=== PATIENT | female | born 1955 | race Caucasian/White ===

== ENCOUNTER → 2020-08-06 07:16 | Outpatient (CLI) | payer OTHER, SELFPAY ==
--- NOTE | ~2020-08-06 | MM_ITS ---
EXAMINATION: MM screening radha BI w harman HISTORY: Screening TECHNIQUE: Craniocaudal and mediolateral oblique 3-D tomosynthesis images were obtained and synthetic 2-D images were generated. CAD analysis was submitted and interpreted. COMPARISON: Comparison to multiple prior studies sequentially, with oldest reviewed study dated 01/09. BREAST PARENCHYMAL COMPOSITION: There are scattered areas of fibroglandular density. FINDINGS: There is no evidence of suspicious mass, calcification, or architectural distortion to sugg est malignancy in either breast. There has been no suspicious interval change. IMPRESSION: 1. No mammographic evidence of malignancy. 2. Recommend routine screening mammography in one year. BI-RADS Category 1: Negative Reviewed, dictated and finalized at location A.
== END ==
PROVIDERS: Visit Provider Obstetrics & Gynecology
DX: Z12.31 Encounter for screening mammogram for malignant neoplasm of breast (principal)
CPT/HCPCS: 77063; 77067

== ENCOUNTER 2021-02-06 09:00 | Outpatient (RCR) | payer OTHER, SELFPAY ==
--- NOTE | 2021-01-17 14:26 | PTOPEVAL ---
PHYSICAL THERAPY EVALUATION AND PLAN OF CARE 01-17-21 Thank you for referring Tonia Guerrero to [facility] for the diagnosis of vestibular rehab.? Mrs. Guerrero is scheduled to be seen for therapy? 0-2 x/week for 5 weeks, to begin at 1x/week and determine frequency as treatment progresses and assess how she responds to the therapy. Please review, sign, date and return this plan of care NATHANIEL. I agree with and certify that the following plan of care is medically necessary. Referring Physician Date Attending Provider: Ivan Vick MD PT Outpatient Evaluation Document 01/17/21 13:30 AUGIE (Rec: 01/17/21 14:26 AUGIE [id number]) Outpatient Past Medical History Past Medical History Source of Past Medical History Patient Neurological History Hx Neurological Disorders No Significant History Cardiovascular History Hx Cardiac Disorders No Significant History Respiratory History Hx Other Respiratory Disorders Yes: pollen allergies- take weekly injections; inhaler PRN Gastrointestinal History Hx Gastrointestinal Disorders No Significant History Genitourinary History Hx Genitourinary Disorders No Significant History Musculoskeletal History Hx Musculoskeletal Disorders No Significant History Endocrine History Hx Endocrine Disorders No Significant History Reproductive History Hx Section Yes Evaluation Information Problem Diagnosis vestibular therapy Onset Dec 05, 2020 Prior Level of Function Activity Level (Last 3 Months) Occupation retired Hand Dominance Right Activity of Daily Living Ability Independent Indoor/Home Mobility Independent Community Mobility Independent Stairs Ability Independent Functional Cognition (Planning, Shopping Independent , Taking Medications) Cooking Yes Cleaning Yes Laundry Yes Shopping Yes Driving Yes Comments Additional Prior Level of Function difficulty with golf due to Comments dizziness, putting zane in ground; walking for fitness, 1 /2 to 1 mile/day; Pain Assessment Timing of Pain Assessment Timing of Pain Assessment Assessment Self Report Self Report Pain Level 0 Pain Score Pain Score 0: Self Report Vestibular Evaluation Vestibular Medical Information Past Vestibular History Sinus/Allergy Issues Medical History Comments saw general dr after onset of dizziness- ? ear infection, antibiotics completed; returned to dr- continued to have dizzines
--- NOTE | 2021-03-14 11:33 | PCPTNOTE ---
PHYSICAL THERAPY DISCHARGE 03-14-21 Attending Provider: Ivan Vick MD Patient:Tonia Guerrero Date of :1955 Mrs. Guerrero has not returned for any further treatments since 02/06/2021, therefore she will be discharged at this time. Tonia has received 4 PT sessions, from January 17 to February 06, for the diagnosis of BPPV. She improved and was to call if there were any further needs. Thank you for referring Tonia to [facility]. Please review, sign, date and return this discharge summary NATHANIEL. I have been updated about the patient's current status and I agree with discharge from the above service at this time. Referring Physician Date
== END 2021-03-14 14:39 | disposition home or self-care (01) ==
LOC: ANHPT 09:00
PROVIDERS: PCP Family Medicine Sports Medicine; Visit Provider Otolaryngology
DX: R42 Dizziness and giddiness (principal)
CPT/HCPCS: 97110; 97161

== ENCOUNTER → 2021-10-14 10:15 | Outpatient (CLI) | payer MEDICARE, SELFPAY ==
--- NOTE | ~2021-10-14 | MM_ITS ---
EXAMINATION: MM screening [facility] BI w harman HISTORY: Screening mammogram TECHNIQUE: Craniocaudal and mediolateral oblique 3-D tomosynthesis images were obtained and synthetic 2-D images were generated. CAD analysis was submitted and interpreted. COMPARISON: 08/06/2020, 06/01/2019, 05/22/2019, 06/19/2018 BREAST PARENCHYMAL COMPOSITION: There are scattered areas of fibroglandular density. FINDINGS: There is no evidence of suspicious mass, calcification, or architectural distortion to sugg est malignancy in either breast. There has been no suspicious interval change. IMPRESSION: 1. No mammographic evidence of malignancy. 2. Recommend routine screening mammography in one year. BI-RADS Category 1: Negative Reviewed, dictated and finalized at location A. 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
== END ==
PROVIDERS: PCP Family Medicine Sports Medicine; Visit Provider Obstetrics & Gynecology
DX: Z12.31 Encounter for screening mammogram for malignant neoplasm of breast (principal)
CPT/HCPCS: 77063; 77067

== ENCOUNTER → 2022-07-09 10:55 | Outpatient (CLI) | payer MEDICARE, SELFPAY ==
--- NOTE | ~2022-07-09 | DEXA_ITS ---
Bone Density Report Name: LAURA GARCIA Age: 67 Sex: Female Ethnicity: White Date of : 1955 Indication: osteopenia; parental hip fracture; height loss; postmenopausal Referring Provider: ARPITA, HAYDEE Castellon Study: Bone densitometry was performed. Exam Date: July 09, 2022 Accession number: [id number] Bone Density: Region BMD T-score Z-score Classification AP Spine (L1-L4) 0.934 -1.0 0.8 Normal Femoral Neck (Left) 0.637 -1.9 -0.3 Osteopenia Total Hip (Left) 0.820 -1.0 0.3 Normal Femoral Neck (Right) 0.631 -2.0 -0.4 Osteopenia Total Hip (Right) 0.757 -1.5 -0.2 Osteopenia Total Hip Mean 0.789 -1.3 0.1 Osteopenia World Health Organization criteria for BMD impression classify patients as: Normal (T-score at or above -1.0), Osteopenia (T-score between -1.0 and -2.5), or Osteoporosis (T-score at or below -2.5). 10-year Fracture Risk(1): Major Osteoporotic Fracture 19% Hip Fracture 2.0% Reported Risk Factors: [place] (), Neck BMD=0.631, BMI=24.2, parental fracture (1) FRAX(R) Version 3.08. Fracture probability calculated for an untreated patient. Fracture probability may be lower if the patient has received treatment. Previous Exams: Region Exam Age BMD T-score BMD Change BMD Change Date g/cm2 vs Baseline vs Previous AP Spine(L1-L4) 07/09/2022 67 0.934 -1.0 0.111* 0.041* 02/17/2018 62 0.893 -1.4 0.069* -0.006 09/17/2015 60 0.899 -1.3 0.076* -0.004 09/02/2013 58 0.903 -1.3 0.080* -0.011 08/17/2011 56 0.914 -1.2 0.091* 0.023* 08/15/2010 55 0.891 -1.4 0.068* 0.017 07/13/2009 54 0.875 -1.6 0.051* -0.007 06/15/2008 53 0.882 -1.5 0.058* 0.050* 06/15/2007 52 0.832 -2.0 0.008 0.008 04/23/2005 50 0.823 -2.0 Total Hip(Left) 07/09/2022 67 0.820 -1.0 0.038* -0.051* 02/17/2018 62 0.871 -0.6 0.089* 0.052* 09/17/2015 60 0.819 -1.0 0.038* 0.077* 09/02/2013 58 0.742 -1.6 -0.040* 0.036* 08/17/2011 56 0.706 -1.9 -0.076* -0.017 08/15/2010 55 0.723 -1.8 -0.059* -0.036* 07/13/2009 54 0.759 -1.5 -0.023 0.053* 06/15/2008 53 0.706 -1.9 -0.075* -0.014 06/15/2007 52 0.720 -1.8 -0.061* -0.061* 04/23/2005 50 0.782 -1.3 Total Hip(Right) 07/09/2022 67 0.757 -1.5 -0.005 -0.012 02/17/2018 62 0.769 -1.4 0.007 0.022
== END ==
PROVIDERS: PCP Family Medicine Sports Medicine; Visit Provider Family Medicine Sports Medicine
DX: Z13.820 Encounter for screening for osteoporosis (principal); Z78.0 Asymptomatic menopausal state; M85.852 Other specified disorders of bone density and structure, left thigh; M85.851 Other specified disorders of bone density and structure, right thigh
CPT/HCPCS: 77080

== ENCOUNTER → 2023-01-08 11:01 | Outpatient (CLI) | payer MEDICARE, SELFPAY ==
--- NOTE | ~2023-01-08 | MM_ITS ---
EXAMINATION: MM screening radha BI w harman HISTORY: Screening mammogram TECHNIQUE: Craniocaudal and mediolateral oblique 3-D tomosynthesis images were obtained and synthetic 2-D images were generated. CAD analysis was submitted and interpreted. COMPARISON: 10/14/2021, 08/06/2020 bilateral screening mammogram examinations BREAST PARENCHYMAL COMPOSITION: There are scattered areas of fibroglandular density. FINDINGS: Minimal subtle microcalcifications are noted in the upper outer left breast. Diagnostic lef t mammogram with magnification views is recommended, with ultrasound if required. Otherwise there is no evidence of suspicious mass, calcification, or architectural distortion to sugg est malignancy in either breast. There has been no other suspicious interval change. IMPRESSION: 1. Minimal subtle microcalcifications in the upper outer left breast 2. Diagnostic left mammogram with magnification views is recommended, with ultrasound if required BI-RADS Category 0: Incomplete: Needs additional imaging evaluation. Reviewed, dictated and finalized at location A. IMPRESSION: 1. Minimal subtle microcalcifications in the upper outer left breast 2. Diagnostic left mammogram with magnification views is recommended, with ultr asound if required BI-RADS Category 0: Incomplete: Needs additional imaging evaluation.
== END ==
PROVIDERS: PCP Family Medicine Sports Medicine; Visit Provider Obstetrics & Gynecology
DX: Z12.31 Encounter for screening mammogram for malignant neoplasm of breast (principal); R92.8 Other abnormal and inconclusive findings on diagnostic imaging of breast
CPT/HCPCS: 77063; 77067

== ENCOUNTER → 2023-02-08 08:08 | Outpatient (CLI) | payer MEDICARE, SELFPAY ==
--- NOTE | ~2023-02-08 | MM_ITS ---
EXAMINATION: MM diagnostic mammo unilat LT HISTORY: Left breast calcifications on screening mammogram TECHNIQUE: Magnification images of the left breast were performed. CAD analysis was submitted and int erpreted. COMPARISON: 01/08/2023, 10/14/2021, 08/06/2020 FINDINGS: No definite grouped calcifications are identified with magnification views. Screening mammo gram findings are suspected to reflect pseudocalcification. IMPRESSION: 1. No mammographic evidence of malignancy. 2. Recommend routine screening mammography in one year. BI-RADS Category 1: Negative Reviewed, dictated and finalized at location A.
== END ==
PROVIDERS: PCP Family Medicine Sports Medicine; Visit Provider Nurse Practitioner Obstetrics & Gynecology
DX: R92.0 Mammographic microcalcification found on diagnostic imaging of breast (principal)
CPT/HCPCS: 77065

== ENCOUNTER 2024-03-03 10:49 | Outpatient (CLI) | payer MEDICARE, SELFPAY ==
--- NOTE | ~2024-03-03 | MM_ITS ---
EXAMINATION: MM screening radha BI w harman HISTORY: Screening mammogram TECHNIQUE: Craniocaudal and mediolateral oblique 3-D tomosynthesis images were obtained and synthetic 2-D images were generated. CAD analysis was submitted and interpreted. COMPARISON: February 08, 2023 diagnostic left mammogram, reported negative 01/08/2023, 10/14/2021 bilateral screening mammogram examinations BREAST PARENCHYMAL COMPOSITION: There are scattered areas of fibroglandular density. FINDINGS: There is no evidence of suspicious mass, calcification, or architectural distortion to sugg est malignancy in either breast. There has been no suspicious interval change. IMPRESSION: 1. No mammographic evidence of malignancy. 2. Recommend routine screening mammography in one year. BI-RADS Category 1: Negative Reviewed, dictated and finalized at location B.
== END 2024-03-03 10:50 ==
PROVIDERS: PCP Family Medicine; Visit Provider Nurse Practitioner Obstetrics & Gynecology
DX: Z12.31 Encounter for screening mammogram for malignant neoplasm of breast (principal)
CPT/HCPCS: 77063; 77067

== ENCOUNTER 2025-01-22 09:14 | Outpatient (CLI) | payer MEDICARE, SELFPAY ==
--- NOTE | ~2025-01-22 | DEXA_ITS ---
Bone Density Report Name: LAURA GARCIA Age: 69 Sex: Female Ethnicity: White Date of : 1955 Indication: postmenopausal; screening for osteoporosis; parental hip fracture; Referring Provider: VINICIUS, AUTUMN Castellon Study: Bone densitometry was performed. Exam Date: January 22, 2025 Accession number: [id number] Bone Density: Region BMD T-score Z-score Classification AP Spine(L1-L4) 0.962 -0.8 1.3 Normal Femoral Neck (Left) 0.594 -2.3 -0.6 Osteopenia Total Hip (Left) 0.761 -1.5 0.0 Osteopenia Femoral Neck (Right) 0.630 -2.0 -0.2 Osteopenia Total Hip (Right) 0.740 -1.7 -0.2 Osteopenia Total Hip Mean 0.751 -1.6 -0.1 Osteopenia World Health Organization criteria for BMD impression classify patients as: Normal (T-score at or above -1.0), Osteopenia (T-score between -1.0 and -2.5), or Osteoporosis (T-score at or below -2.5). 10-year Fracture Risk(1): Major Osteoporotic Fracture 20% Hip Fracture 4.7% Reported Risk Factors: [place] (), Neck BMD=0.594, BMI=23.6, parental fracture (1) FRAX(R) Version 3.08. Fracture probability calculated for an untreated patient. Fracture probability may be lower if the patient has received treatment. Clinical Information Provided by Patient: Parent has had a hip fracture Has used the following medications: Boniva (i.e. ibandronate), Fosamax (i.e. alendronate), Vitamin D Patient maximum height was 62.0 Menopause Age: 43 Onset of menses at age 14 Number of children 2 Impression: The patient has low bone mass, based on the Left Femoral Neck T-score. The patient has an estimated ten-year risk of hip fracture of 4.7% and an estimated ten-year risk of major fracture of 20%, based on the WHO FRAX algorithm. The patient has risk factors, including: parental hip fracture. Discussion: BONE DENSITY IS LOW AT ONE OR MORE SKELETAL SITES. THE PATIENT'S BMD AND CLINICAL RISK FACTORS CONTRIBUTE TO THIS PATIENT'S HIGH RISK OF FRACTURE. This patient's lowest T-score is low at one or more skeletal sites. It meets the World Health Organization's (WHO) criteria for ?low bone mass? (T-score between -1.0 and -2.5). The patient's 10-year risk of hip fracture and 10 year risk of a major osteoporotic fracture as calculated by FRAX exceeds the threshold where pharmacological therapy is recommended by the National Osteoporosis Foundation (NOF). However, all treatment decisions require clinical judgment and consideration of individual patient factors, including patient preferences, comorbidities, previous drug use, risk factors not captured in the FRAX model (e.g., frailty, falls, vitamin D deficiency, increased bone turnover, interval significant decline in bone density) and possible under or overestimation of fracture risk by FRAX. The patient should follow a healthful lifestyle (good nutrition with adequate calcium and vitamin D, and appropriate weight-bearing exercise). Follow-Up: Consider a repeat BMD and Vertebral Fracture Assessment (VFA) exam in 2 years or sooner if medically necessary, to reassess this patient's status. Reported by: HEBER on 01/22/2025 9:48:00 AM. Reviewed, dictated and finalized at location ASuzanne HERNANDEZ
--- OUTSIDE RECORDS SUMMARY | 2025-01-22 09:55 | XMS_ITS | Referral Summary ---
Author Organization [facility] Address [address] [place] [id number] Care Team Providers Care Shopper Marketing Manager Name Role Phone Trino Marroquin MD Primary Care Provider [phone] Allergies No known active allergies Medications alendronate (FOSAMAX) 70 mg tablet 09/28/2022 Active ergocalciferol (VITAMIN D) 50,000 unit capsule Vitamin D2 1,250 mcg (50,000 unit) capsule take 1 capsule by oral route every week 06/28/2019 Active levothyroxine (SYNTHROID) 25 mcg tablet 11/04/2022 Active Active Problems Problem Noted Date Diagnosed Date Chest pain 11/20/2022 Osteoporosis 11/20/2022 Hypothyroidism 11/20/2022 Palpitations 11/20/2022 Social History Tobacco Use Types Packs/Day Years Used Date Smoking Tobacco: Never Smokeless Tobacco: Never Tobacco Cessation:Counseling Given: Not Answered Personal Safety Answer Date Recorded Getting School Help Needed Not on file 12/23 Comments Unknown Sex and Gender Information Value Date Recorded Sex Assigned at Not on file 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 Gender Identity Not on file Sexual Orientation Not on file Last Filed Vital Signs Vital Sign Reading Time Taken Comments Blood Pressure 96/61 04/01/2024 8:33 AM CDT Pulse 73 04/01/2024 8:33 AM CDT Temperature 36.7 C (98 F) 04/01/2024 8:33 AM CDT Respiratory Rate 20 04/01/2024 8:33 AM CDT Oxygen Saturation 98% 04/01/2024 8:33 AM CDT Inhaled Oxygen Concentration - - Weight 56.9 kg (125 lb 6.4 oz) 04/01/2024 8:33 A M CDT Height 157.5 cm (5' 2.01 ) 04/01/2024 8:33 AM CD T Body Mass Index 22.93 04/01/2024 8:33 AM CDT Plan of Treatment Not on file Insurance MEDICARE ADVANTAGE MEDICARE ADVANTAGE Care Teams Shopper Marketing Manager Relationship Specialty Start Date End Date Trino Marroquin MD [address] [place] [address] PCP - General Family Medicine 04/01/24
--- OUTSIDE RECORDS SUMMARY | 2025-01-22 09:55 | XMS_ITS | Clinical Summary ---
Author Organization [facility] Address [address] [place] [phone] Care Team Providers Care Clerk Analyst Name Role Phone Trino Marroquin MD Primary Care Provider [phone] Allergies No known active allergies Medications alendronate (FOSAMAX) 70 mg tablet 09/28/2022 Active ergocalciferol (VITAMIN D) 50,000 unit capsule Vitamin D2 1,250 mcg (50,000 unit) capsule take 1 capsule by oral route every week 06/28/2019 Active levothyroxine (SYNTHROID) 25 mcg tablet 11/04/2022 Active Active Problems Problem Noted Date Diagnosed Date Chest pain 11/20/2022 Osteoporosis 11/20/2022 Hypothyroidism 11/20/2022 Palpitations 11/20/2022 Surgical History Surgery Date Site/Laterality Comments SECTION Family History Medical History Relation Name Comments COPD Mother Thyroid cancer Mother COPD Mother's Brother Breast cancer Mother's Sister Stroke Paternal Grandfather Melanoma Paternal Grandmother Relation Name Status Comments Mother Mother's Brother Mother's Sister Paternal Grandfather Paternal Grandmother Social History Tobacco Use Types Packs/Day Years Used Date Smoking Tobacco: Never Smokeless Tobacco: Never Tobacco Cessation:Counseling Given: Not Answered Personal Safety Answer Date Recorded Getting School Help Needed Not on file 12/23 Comments Unknown Sex and Gender Information Value Date Recorded Sex Assigned at Not on file 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 Gender Identity Not on file Sexual Orientation Not on file Obstetrics History Last Filed Vital Signs Vital Sign Reading [...] 04/01/2024 8:33 AM CDT Plan of Treatment Health Maintenance Due Date Last Done Comments Colon Cancer Screening-Colonoscopy 1955 Depression Screening 1955 Fall Risk Assessment 1955 Hepatitis C Screening 1955 Osteoporosis Screening-Bone Density Scan 1955 DTaP/Tdap/Td Vaccine (1 - Tdap) 1967 Hepatitis B Screening 1974 Pneumococcal vaccine 65+ (1 of 1 - PCV) 2006 Zoster Vaccine (1 of 2) 2006 Well Visit 65+ 2021 Covid-19 Vaccine (4 - 2023-2 5 season) 2024 05/07/2022, 01/14/2021, 12/24/2020 Influenza Vaccine (#1) 2024 08/05/2022, 2020 Breast Cancer Screening-Mammogram 03/03/2025 03/03/2024, 01/08/2023, 10/14/2021, Additional history exists Insurance [employer] MEDICARE ADVANTAGE Care Teams Clerk Analyst Relationship Specialty Start Date End Date Trino Marroquin MD [address] [place] [address] PCP - General Family Medicine 04/01/24
--- OUTSIDE RECORDS SUMMARY | 2025-01-22 09:56 | XMS_ITS | Continuity of Care Document ---
Author Organization [facility] Address [address] [place] [address] Phone Care Team Providers Care Dye Expert Name Role Phone Dixon OD, Damion Unavailable Unavailable Procedures Procedure Date Eye Exam & Treatment Refraction Eye Exam & Treatment Refraction Eye Exam & Treatment Refraction Eye Exam & Treatment Refraction Advance Directives Directive Yes / No Effective Date File Name No Information Encounters Encounter Description Practice Location Reason(s) For Visit Diagnoses Date Provider Providers Copied on Encounter [facility], [address] [place] [address] [address], [place], [place], [id number], [place] tel:[phone] [facility] No Information 3-201 0 Dixon OD Damion. [address] , [address], [place], [place], [facility], [place]. tel:[phone] [facility], [address] [place] [address] [address], [place], [place], [id number], [place] tel:[phone] [facility] No Information Mar- 7-200 9 Dixon OD Damion. [address] , [address], [place], [address], [place]. tel:[phone] [facility], [address] [place] [address] [address], [place], [place], [id number], [place] tel:[phone] [facility] No Information Oscar-0 3-200 8 Dixon OD Damion. [address] [facility] , [address], [place], [address], [place]. tel:[phone] [facility], [address], [place], [place], [id number], [place] tel:[phone] [facility] No Information May-2 3-200 7 Dixon OD Damion. [address] [facility] , [address], [place], [address], [place]. tel:[phone] Family History Family Member Type Diagnosis Age At Onset No Information Payers Payer name Insurance type Covered green party ID Authoriza tion(s) No Information Social History Type Description Quantity Date Captured Comments Sex Female Smoking Status No Information Chief Complaint And Reason For Visit No Information Reason For Referral Reason For Referral No Information History Of Present Illness Encounter Date Complaint History Of Prese nt Illness No Information Functional Status Date Functional Assessmen t No Information Instructions Date Instruction Additional Infor mation No Information Assessments Type Assessment Date No Information Patient Care Teams Name Effective Dates (start - stop) Status Members No Information
--- OUTSIDE RECORDS SUMMARY | 2025-01-22 09:56 | XMS_ITS | Data Portability ---
Author Organization [facility] Address [address] [place] [address] [place] [address] Care Team Providers Care Child Neurologist Name Role Phone HAYDEE PALM Primary Care Provider [phone] Assessment Encounter Date Assessment Date Assessment LastModified by Organization Details LastModified Time 04/21/2022 04/21/2022 Annual gynecological exam performed. Patient will come back in a year unless there are new symptoms. [facility] Not available 04/21/2022 09:49:39 Plan of Treatment Reminders Order Date Submit Date Provider Last Modified By Organization Details Last Modified Time Details Appointments None recorded. Lab urinalysis , dipstick 2021 [address], [address], [place], [address], 10:30:16 Referral None recorded. Procedures None recorded. Surgeries None recorded. Imaging MAMMO, screening, bilateral [address] [facility], [address], [place] [place] [address], [place], [address], 09:54:53 Medication Orders Macrobid 100 mg capsule 2021 DENISE Not available 10:19:43 Patient TargetsNo targets recorded. Patient InstructionsNo instructions recorded. Reason for Referral None Reported. Results Created Date Observation Date Name Description Value Unit Range Abnormal Flag Note LastModifiedBy Organization Detail LastModifiedTime 04/21/20 22 04/21/2022 URINA LYSIS , WITH MICRO SCOPI C color, urine Yellow colorl ess, light yellow , yellow , dark yellow , straw Not Available [facility] (Lab) [address] [place], [address], 04/23/2022 06:07:11 04/21/20 22 04/21/2022 URINA LYSIS , WITH MICRO SCOPI C clarity, urine Clear Not Available [facility] (Lab) [address] [place], [address], 04/23/2022 06:07:11 04/21/20 22 04/21/2022 URINA LYSIS , WITH MICRO SCOPI C glucose, urine Negati ve mg/dL negati ve Not Available [facility] (Lab) [address] [facility], [place], [address], 04/23/2022 06:07:11 04/21/20 22 04/21/2022 URINA LYSIS , WITH MICRO SCOPI C bilirubin, urine Negati ve mg/dL negati ve Not Available [facility] (Lab) [address] [place], [address], 04/23/2022 06:07:11 04/21/20 22 04/21/2022 URINA LYSIS , WITH MICRO SCOPI C ketones, urine Negati ve mg/dL negati ve Not Available [facility] (Lab) [address] [place], [address], 04/23/2022 06:07:11 04/21/20 22 04/21/2022 URINA LYSIS , WITH MICRO SCOPI C pH, urine 5.0 . 5.0-9. 0 Not Available [facility] (Lab) [address] [place], [address], 04/23/2022 06:07:11 04/21/20 22 04/21/2022 URINA LYSIS , WITH MICRO SCOPI C specific gravity, urine 1.017 . 1.001- 1.035 Not Available [facility] (Lab) [address] [place] [facility] [place], [address], 04/23/2022 06:07:11 04/21/20 22 04/21/2022 URINA LYSIS , WITH MICRO SCOPI C blood, urine Negati ve negati ve Not Available [facility] (Lab) [address] [facility], [place], [address], 04/23/2022 06:07:11 04/21/20 22 04/21/2022 URINA LYSIS , WITH MICRO SCOPI C protein, UA Negati ve mg/dL negati ve Not Available [facility] (Lab) [address] [facility], [place], [address], 04/23/2022 06:07:11 04/21/20 22 04/21/2022 URINA LYSIS , WITH MICRO SCOPI C urobilinogen , urine <2.0 mg/dL <2.0 Not Available [facility] (Lab) [address] [facility], [place], [address], 04/23/2022 06:07:11 04/21/20 22 04/21/2022 URINA LYSIS , WITH MICRO SCOPI C nitrite, urine Negati ve negati ve Not Available [facility] (Lab) [address] [facility], [place], [address], 04/23/2022 06:07:11 04/21/20 22 04/21/2022 URINA LYSIS , WITH MICRO SCOPI C leukocyte esterase, urine Trace chris/u L negati ve abnormal Not Available [facility] (Lab) [address] [facility], [place], [address], 04/23/2022 06:07:11 04/21/20 22 04/21/2022 URINA LYSIS , WITH MICRO SCOPI C WBC, urine 0-5 /hpf none, 0-5 Not Available [facility] (Lab) [address] [facility], [place], [address], 04/23/2022 06:07:11 04/21/20 22 04/21/2022 URINA LYSIS , WITH MICRO SCOPI C RBC, urine 0-2 /hpf none, 0-2 Not Available [facility] (Lab) [address] [facility], [place], [address], 04/23/2022 06:07:11 04/21/20 22 04/21/2022 URINA LYSIS , WITH MICRO SCOPI C bacteria, urine None /hpf none Not Available [facility] (Lab) [address] [facility], [place], [address], 04/23/2022 06:07:11 04/21/20 22 04/21/2022 URINA LYSIS , WITH MICRO SCOPI C squamous epithelial cells, urine Trace /hpf none abnormal Not Available [facility] (Lab) [address] [facility], [place], [address], 04/23/2022 06:07:11 04/21/20 22 04/21/2022 URINA LYSIS , WITH MICRO SCOPI C mucus, urine Trace /hpf none, trace, few Not Available [facility] (Lab) [address] [facility], [place], [address], 04/23/2022 06:07:11 04/21/20 22 04/21/2022 CULTU RE: URINE result report SEE RESULT S BELOW Test: Cultu re: Urine Speci men Sourc e: Urine Voide d Speci men Type: Urine Speci men Date: 2021 1:43 PM Resul t Date: 2021 5:03 AM Resul t Statu s: Final resul t Abnor mal: No Resul ting Lab: [facility] [address] [facility] [address] Tel: CULTU RE ----- ----- ----- --- No growt h in 1 day (dete ction level of 10,00 0 colon ies / ml.) Not Available [facility] (Lab) [address] [facility], [place], [address], 04/23/2022 06:07:12 04/21/20 22 04/21/2022 IMAGE GUIDE D PAP AND HPV REGAR DLESS image guided Pap, HPV regardless of Pap result SEE RESULT S BELOW CASE REPOR T: Cytol ogy Gynec ologi hugh Repor t Case: [id number] Autho nii jones Provi marcos: Dagmar soler , Jaymie Licona cted: 04/21 1347 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 Atrop hic bibiana cox rn. Elect мария leach manuelito d by Jelena Biggs, CT on 022 at 8:52 AM ----- ----- ----- ----- ----- ----- ----- ----- ----- ----- ----- ----- ----- ----- ----- ----- ----- ---- HPV RESUL TS: HPV mRNA E6/E7 : No HPV mRNA Detec roney NOTE: This high risk HPV mRNA assay detec ts fourt een high- risk HPV types (16, 18, 31, 33, 35, 39, 45, 51, 52, 56, 58, 59, 66, 68) witho ut diffe renti ation . COMME NT: Note: This speci men was revie wed by a Cytot echno logis t and/o r Patho logis t (as indic ated in this repor t) after evalu ation using the Thinp rep Imagi ng Syste m. CLINI HUGH INFOR MATIO N: Menst rual Statu s: LMP (if appli cable ): Clini hugh Histo ry/Pr eviou s Pap: Type of Neopl maco (if appli cable ): Signi fican t Clini hugh Findi ngs: Other Histo ry: Hormo altagracia (if appli cable ): PAP EDUCA ALEXEI L NOTE: The Pap Test is a scree edda test with an inher ent false negat alyce rate. Liqui d-bas ed sampl ing may decre ase, but will not elimi theresa, false negat alyce resul ts. A negat alyce resul t does not precl ude the prese nce and/o r devel opmen t of disea se, since the prese nce of abnor mal cells in the sampl e depen ds on the locat ion of the lesio n and sampl ing techn ique. Arron nued regul ar scree edda is the best metho d of cance r preve ntion . If repor roney cytol ogic findi ng do not corre late with physi hugh and/o r histo rical findi ngs, furth er inves tigat ion is recom moraima d, as clini kevin warra nted. Not Available [facility] (Lab) [address], [place], [address], 04/25/2022 09:55:13 04/21/20 22 04/21/2022 urina lysis , dipst ick Leukocytes +1 Not Available Vikash daniel [address], [place], [address], 04/21/2022 10:29:26 04/21/20 22 04/21/2022 urina lysis , dipst ick Nitrite neg Not Available [place] [address], [place], [address], 04/21/2022 10:29:26 04/21/20 22 04/21/2022 urina lysis , dipst ick Urobilinogen neg Not Available Reina flores [address], [place], [address], 04/21/2022 10:29:26 04/21/20 22 04/21/2022 urina lysis , dipst ick Protein neg Not Available [place] [address], [place], [address], 04/21/2022 10:29:26 04/21/20 22 04/21/2022 urina lysis , dipst ick pH 6 Not Available [place] [address], [place], [address], 04/21/2022 10:29:26 04/21/20 22 04/21/2022 urina lysis , dipst ick Blood trace Not Available [place] [address], [place], [address], 04/21/2022 10:29:26 04/21/20 22 04/21/2022 urina lysis , dipst ick Specific [place] 1.010 Not Available Thom yuan [address], [place], [address], 04/21/2022 10:29:26 04/21/20 22 04/21/2022 urina lysis , dipst ick Ketone neg Not Available [place] [address], [place], [address], 04/21/2022 10:29:26 04/21/20 22 04/21/2022 urina lysis , dipst ick Bilirubin neg Not Available [facility] [address], [place], [address], 04/21/2022 10:29:26 04/21/20 22 04/21/2022 urina lysis , dipst ick Glucose neg Not Available [place] [address], [place], [address], 04/21/2022 10:29:26 04/21/20 22 04/21/2022 urina lysis , dipst ick Appearance clear Not Available Vikash daniel [address], [place], [address], 04/21/2022 10:29:26 04/21/20 22 04/21/2022 urina lysis , dipst ick Color yellow Not Available [place] [address], [place], [address], 04/21/2022 10:29:26 01/09/20 23 01/08/2023 MAMMO , scree edda, bilat eral No observ ation record ed. [facility] [address], [place], [address], 01/10/2023 11:19:10 01/12/20 23 01/08/2023 MAMMO , scree edda, bilat eral No observ ation record ed. [facility] [address], [place], [address], 01/25/2023 05:27:27 02/09/20 23 02/08/2023 MAMMO , diagn ostic , unila teral No observ ation record ed. [facility] [address], [place], [address], 02/15/2023 18:18:52 02/09/20 23 02/08/2023 US, breas t, unila teral No observ ation record ed. [email or web address] [facility] [address], [place], [address], 08/23/2023 14:07:37 03/03/20 24 03/03/2024 MAMMO , scree edda, bilat eral No observ ation record ed. [facility] [address], [place], [address], 03/14/2024 14:39:52 Result Notes None recorded. Problems Name Problem SNOMED Code Status Onset Date Resolution Date Notes Provider Name and Address Organization Details Recorded Time Blood leukocyt e number above referenc e range [id number] Completed 201704/20/2022 Elevated white blood cell count, unspecifi ed;Practi ce ID: [id number] [facility] 16:[facility]:19 Evaluati on finding Completed 201804/20/2022 Hematuria , unspecifi ed;Practi ce ID: 0001 Sara morel [facility] 2 16:36:[address] Concept Completed 201804/20/2022 Encounter for general adult medical exam w abnormal findings; Practice ID: [id number] Sara morel [facility] 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 2 16:36:19 Screenin g for malignan t neoplasm of rectum Completed 201804/20/2022 Encounter for screening for malignant neoplasm of rectum;Pr actice ID: [address] [facility] 2 16:36:19 Screenin g for malignan t neoplasm of cervix Completed 201004/20/2022 Screening for malignant neoplasms of the cervix;Re corded Elsewhere : No Locati on: [facility] So urce: EHR Chron ic: N Practic e ID: 0001 Bill able Time: 10:15:00 AM [facility] 16:36:18 Abnormal cervical Papanico laou smear with human papillom avirus deoxyrib onucleic acid detected [id number] Completed 201304/20/2022 Cervical high risk human papilloma virus (HPV) DNA test positive; Recorded Elsewhere : No Locati on: [facility] So urce: EHR Chron ic: N Practic e ID: 0001 Bill able Time: 08:45:00 AM Sara Singh [facility] 2 16:36:[address] Concept Completed 201804/20/2022 Encntr for general adult medical exam w/o abnormal findings; Recorded Elsewhere : No Locati on: [facility] So urce: EHR Chron ic: N Practic e ID: 0001 Bill able Time: 08:45:00 AM Sara Singh [facility] 2 16:36:19 Speciali zed medical examinat ion Completed 201004/20/2022 Gynecolog ical Examinati on;Record ed Elsewhere : No Locati on: [facility] So urce: EHR Chron ic: N Practic e ID: 0001 Bill able Time: 10:15:00 AM Sara Singh [facility] 2 16:36:19 Adult health examinat ion Completed 201404/20/2022 ROUTINE MEDICAL EXAM;Eusebio rded Elsewhere : No Locati on: [facility] So urce: EHR Chron ic: N Practic e ID: 0001 Bill able Time: 11:45:00 AM Sara Singh [facility] 2 16:36:18 Leukocyt osis [id number] Completed 201204/20/2022 LEUKOCYTO SIS NOS;Recor ded Elsewhere : No Locati on: [facility] So urce: EHR Chron ic: N Practic e ID: 0001 Bill able Time: 09:30:00 AM Sara Singh [facility] 2 16:36:18 Radiolog ic finding [id number] Completed 201804/20/2022 Oth abn and inconclus alyce findings on dx imaging of breast;Re corded Elsewhere : No Locati on: [facility] So urce: EHR Chron ic: N Practic e ID: 0001 Bill able Time: 08:45:00 AM Sara [facility] 2 16:36:18 Microsco pic hematuri a [id number] Completed 201104/20/2022 MICROSCOP IC HEMATURIA ;Recorded Elsewhere : No Locati on: [facility] So urce: EHR Chron ic: N Practic e ID: 0001 Bill able Time: 01:30:00 PM Sara [facility] 2 16:36:18 Problem Notes None recorded. Procedures Surgical History Date Name Laterality Status Provider Name and Address Organization Details Recorded Time 1 Date of Last Mammogram completed [facility] 04/21/2022 09:52:36 1 Date of Last Colonoscopy completed [facility] 04/21/2022 09:54:08 3 Colposcopy completed [facility] 04/21/2022 09:53:31 3 Colposcopy completed [facility] 04/21/2022 09:51:17 Tubal Ligation completed [facility] 04/21/2022 09:51:17 Caesarean Section completed [facility] 04/21/2022 09:51:17 Imaging Results Imaging Date Name Status [facility] Details LastModified Time 01/08/2023 MAMMO, screening, bilateral completed [facility] [address], [place], [address], 01/10/2023 11:19:10 01/08/2023 MAMMO, screening, bilateral active [facility] [address], [place], [address], 01/25/2023 05:27:27 02/08/2023 MAMMO, diagnostic, unilateral completed [facility] [address], [place], [address], 02/15/2023 18:18:52 02/08/2023 US, breast, unilateral completed [email or web address] [address], [place], [address], 08/23/2023 14:07:37 03/03/2024 MAMMO, screening, bilateral completed DENISE [facility] [address], [place], [address], 03/14/2024 14:39:52 Procedure Notes None recorded. Medical Equipment None Reported. Allergies No known drug allergies Medications Name Sig Start Date Stop Date Status Note LastModified by Organization Details LastModified Time azithromy dhruv 250 mg tablet 04/21 completed Not Available Not Available Not Available valacyclo vir 1 gram tablet active Not Available Not Available Not Available prednison e 20 mg tablet active Not Available Not Available Not Available levothyro xine 25 mcg tablet active Not Available Not Available Not Available Macrobid 100 mg capsule Take 1 capsule every 12 hours by oral route with meals for 7 days. 2021 active Not Available Not Available Not Avai lable Vitamin D2 1,250 mcg (50,000 unit) capsule take 1 capsule by oral route every week 2018 active Prescrib ed Elsewher e: No Locat ion: [facility] odify By: landon george DateTime : 06/28/20 19 08:25:21 PM Not Available Not Available Not Available Bactrim DS 800 mg-160 mg tablet take 1 tablet by oral route every 12 hours 05/22 completed Prescrib ed Elsewher e: No Locat ion: [facility] odify By: johanne george DateTime : 07/04/20 18 12:15:00 PM Not Available Not Available Not Available Vitamins and Minerals tablet active Prescrib ed Elsewher e: Yes Loca tion: [facility]ify By: landon george DateTime : 08/17/20 11 10:15:00 AM Not Available Not Available Not Available Allergy Syringe 1 mL 28 gauge 04/30 completed Prescrib ed Elsewher e: Yes Loca tion: [facility] odify By: hardeep Evans er DateTime : 08/17/20 11 10:15:00 AM Not Available Not Available Not Available Calcio Tiana 500 mg tablet 08/17 completed Prescrib ed Elsewher e: Yes Loca tion: [facility] odify By: landon george DateTime : 08/14/20 11 10:28:19 PM Not Available Not Available Not Available Boniva 3 mg/3 mL intraveno us syringe inject by intraven ous route every 3 months over 08/17 completed Prescrib ed Elsewher e: Yes Loca tion: [facility] odify By: landon george DateTime : 08/14/20 11 10:28:19 PM Not Available Not Available Not Available Vitamin D3 10 mcg (400 unit) capsule 03/09 completed Prescrib ed Elsewher e: Yes Loca tion: [facility]ify By: sudhakar Encounte r DateTime : 11/15/19 15 11:45:00 AM Not Available Not Available Not Available Josette 30 mg/5 mL oral suspensio n 08/17 completed Prescrib ed Elsewher e: Yes Loca tion: [facility]am [facility] odify By: landon george DateTime : 08/14/20 11 10:28:19 PM Not Available Not Available Not Available Actonel 150 mg tablet take 1 tablet by oral route every month on the same date with a full glass of water at least 30 min before first food or drink of the day; remain in an upright position for at least 30 min. 07/31 completed Prescrib ed Elsewher e: No Locat ion: [facility] odify By: gabriel george DateTime : 11/15/19 15 11:45:00 AM Not Available Not Available Not Available Vitals Date Recorded Body height Body mass index (BMI) Body weight Provider Name and Address Organization Details Last Updated DateTime 04/21/2022 153.67 cm 24.4 kg/m2 29456.23 g Sara Singh [place] - [facility] 04/21/2022 09:50:45 Date Recorded Systolic blood pressure Diastolic blood pressure Provider Name and Address Organization Details Last Updated DateTime 04/21/2022 122 mm[Hg] 76 mm[Hg] Carly Yusuf, [facility]- [address], [place], [address], [place] - [facility] 04/21/2022 14:12:17 Social History Question Answer Notes LastModified by Organizat ion Details LastModified Time Do You Have An Advance Directive? No Information not available 04/21/2022 What Is Your Level Of Alcohol Consumption? None Information not available 04/21/2022 Are You Blind Or Do You Have Difficulty Seeing? No Information not available 04/21/2022 What Is Your Level Of Caffeine Consumption? Occasional Information not available 04/21/2022 How Much Tobacco Do You Chew? None Information not available 04/21/2022 In The 14 Days Before Symptom Onset, Have You Had Close Contact With A Laboratory-confir med COVID-19 While That Case Was Ill? No Information not available 04/21/2022 In The 14 Days Before Symptom Onset, Have You Had Close Contact With A Person Who Is Under Investigation For COVID-19 While That Person Was Ill? No Information not available 04/21/2022 Have You Been To An Area Known To Be High Risk For COVID-19? No Information not available 04/21/2022 Are You Deaf Or Do You Have Serious Difficulty Hearing? No Information not available 04/21/2022 What Type Of Diet Are You Following? REGULAR Information not available 04/21/2022 What Is The Highest Grade Or Level Of School You Have Completed Or The Highest Degree You Have Received? 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 No Information not available 04/21/2022 Do You Use Protection During Sex? No Information not available 04/21/2022 Do You Use Your Seat Belt Or Car Seat Routinely? Yes Information not available 04/21/2022 Do You Have Smoke And Carbon Monoxide Detectors In Your Home? Yes Information not available 04/21/2022 How Much Tobacco Do You Smoke? No Information not available 04/21/2022 Do You Feel Stressed (tense, Restless, Nervous, Or Anxious, Or Unable To Sleep At Night)? [id number] Information not available 04/21/2022 Do You Use Any Illicit Or Recreational Drugs? No Information not available 04/21/2022 Do You Use Sunscreen Routinely? Yes Information not available 04/21/2022 Have You Used IV Drugs? No Information not available 04/21/2022 Sex: Unknown Functional Status Question Answer Note LastModified by Organizat ion Details LastModified Time Do you have difficulty walking or climbing stairs? No Information not available 04/21/2022 Are you able to walk? YESWOREST Information not available 04/21/2022 Are you able to care for yourself? Yes Information not available 04/21/2022 Do you have difficulty dressing or bathing? No Information not available 04/21/2022 What is your exercise level? Moderate Information not available 04/21/2022 Mental Status None recorded. Family History Relationship Description Onset Age of this Age Resolved Age Notes LastModified by Organization Details LastModified Time Maternal Aunt Malignant tumor of breast Not available 2021 09:51:01 Mother Anemia Not available 09:51:01 Mother Osteoporosis Not availab le 04/21/2022 09:51:01 Mother Disorder of thyroid gland Not available 2021 09:51:01 Medical History Condition Response Allergies (Food, seasonal, environmental ) Y Gynecological History Statement/Question Response Abnormal Pap Y Date of Last Mammogram 10/14/2021 N STIs/STDs N HPV Vaccine N Colposcopy 09/28/2013 Current Control Method Menopause Age at First Child 23 If Post Menopausal, Age at Menopause 43 Date of Last Colonoscopy 10/25/2020 Sexually Active? Y Menses Monthly N Date of DEXA bone scan 12/28/2017 Age of first menstrual cycle 14 Date of Last Pap Smear Sexual Problems? Y Desired Control Method Sterilizati on LMP Unknown N Obstetrics History GPAL:G 2 P 0 0 0 2 Type Value Living 2 Total 2 Past Encounters Encounter ID Performer Location Encounter Start Date Encounter Closed Date Diagnosis/Indication Diagnosis SNOMED-CT Code Diagnosis ICD10 Code Diagnosis Note [id number] Carly Yusuf [facility] [address] [address] 04/21/2022 09:28:27 04/21/2022 15:34:43 Gynecologic examination 04067806 Z01.419 Take Calcium with Vitamin D 12-1500mg daily. Do monthly self breast exams. It is advised to get annual flu shot in the fall and she could obtain at [facility] or [facility] care clinic. If you haven't received the Tdap vaccine in the last 10 years you should obtain one as well. Have mammogram yearly, bone density every 2-3 years and colonoscop y every 5-10 years depending on findings and history. Engage in daily exercise of low impact aerobic exercise 45-60 minutes 4-5 times weekly. Avoid tobacco and illicit drugs as well as using moderation with alcohol intake less than 1-2 8 oz beverages daily. This lifestyle behavior pattern will lead to less health conditions and longer life span. If BMI greater than 25 weight watchers or dietary consult advised. Questions have been answered. Patient appears to understand instructio ns, but if you have any further questions call or respond to this email Pap/hpv sent since has not had one since 2016STD Screen declinedGe netic Screen discussedC olon Screen cologuard exa Screen ordered by PCP scheduledR [facility] UTD PCPMammo Ordered for 2021 Screening mammography 24 [id number] Z12.31 Z80.3 Urinary symptoms [id number] R39.9 Urinary dysuria & urgencyUri ne sample takenSuspe ct UTIRx sent Health Concerns Section Related Observation LastModified by Organization Detai ls LastModified Time None Recorded Concern Status LastModified by Organization Details LastModified Time None Recorded Advance Directives Directive N: Payers Encounter Date Sequence Insurance Name Policy Number Policy Alvarado Covered Member ID Alvarado Member ID Guarantor Name 04/21/2022 1 [facility] (MEDICARE REPLACEMENT/A DVANTAGE - PPO) [id number] Tonia L Yolanda [id number] Tonia Guerrero Notes Date Note Type Note Provider Name and Address Organization Details Recorded Time 04/21/2022 text/html 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 Post-MenopausalRe ported bypatient.[place] samir Symptoms:no menopausal symptoms; normal vaginal lubrication Vaginal Bleeding:history of menopause having occurred; no history of post menopausal bleeding Urinary Symptoms:no hematuria; no incontinence; no nocturia; no urinary frequency Vulva:no genital lesion; no vulvar atrophy Vagina:normal vaginal discharge; no vaginal atrophy Breast:no breast lump; no nipple discharge; no breast pain Sexual Complaints:no sexual complaints Psychological Symptoms:no depression; no anxiety Preventive Measures:encourag e regular mammograms starting age 40; encourage self breast examination; encourage regular exercise; encourage no tobacco use; needs to schedule mammogram; history of recent colonoscopy; needs to schedule bone density Carly Yusuf, [facility]- [address], [place], [address], [facility] 04/21/2022 14:14:30 OBGyn Episode Ob Episode Information Episode Created Date Number of Fetuses Patient Bloodtype Patient rh Status Prepregnancy Weight lbs Domestic Partner Domestic Partner Phone Father Name Landing Man Status 04/21/20 22 1 CLOSED Fetus Data First Name Last Name Admitted to NICU Weight (g) Sex Living Outcome Pediatric Complications Fetus ID Race Codes Race Delivery Type F [id number] Primary Philippe Calculation Initial Philippe Date Initial Exam Date Initial Exam Provider Initial Ultrasound Date Last Menstrual Period Date Ultra Sound Weeks Gestation 0 Eighteen To Twenty Week Philippe Update Ultra Sound Date Fundal Height At Umbil Quickening Date Ultra Sound Latest Weeks Gestation Final Philippe Confirmed By Final Philippe Confirmed Date Final Philippe Date Ultra Sound Latest Days Gestation 0 0 Menstrual History Last Menstrual Date Menses Monthly On Bcp Conception Prior Menses Frequency Hcg Plus Date Menarche Onset Age Delivery Information Delivery Date Delivery Type Labor Anesthesia Weeks Gestation Incision Type Labor Labor Length Hrs Delivered By Post Complications Tubal Sterilization Discharge Date Comments 5 Discharge Information Feeding Method Contraceptive Method Maternal HG B and HCT Levels Ob Episode Information Episode Created Date Number of Fetuses Patient Bloodtype Patient rh Status Prepregnancy Weight lbs Domestic Partner Domestic Partner Phone Father Name Landing Man Status 04/21/20 22 1 CLOSED Fetus Data First Name Last Name Admitted to NICU Weight (g) Sex Living Outcome Pediatric Complications Fetus ID Race Codes Race Delivery Type M [id number] Repeat Philippe Calculation Initial Philippe Date Initial Exam Date Initial Exam Provider Initial Ultrasound Date Last Menstrual Period Date Ultra Sound Weeks Gestation 0 Eighteen To Twenty Week Philippe Update Ultra Sound Date Fundal Height At Umbil Quickening Date Ultra Sound Latest Weeks Gestation Final Philippe Confirmed By Final Philippe Confirmed Date Final Philippe Date Ultra Sound Latest Days Gestation 0 0 Menstrual History Last Menstrual Date Menses Monthly On Bcp Conception Prior Menses Frequency Hcg Plus Date Menarche Onset Age Delivery Information Delivery Date Delivery Type Labor Anesthesia Weeks Gestation Incision Type Labor Labor Length Hrs Delivered By Post Complications Tubal Sterilization Discharge Date Comments 8 Discharge Information Feeding Method Contraceptive Method Maternal HG B and HCT Levels
== END 2025-01-22 09:15 | disposition home or self-care (01) ==
LOC: ANHIMG 09:15
PROVIDERS: PCP Family Medicine; Visit Provider Family Medicine
DX: M85.89 Other specified disorders of bone density and structure, multiple sites (principal)
CPT/HCPCS: 77080

== ENCOUNTER 2025-05-03 11:28 | Outpatient (CLI) | payer MEDICARE, SELFPAY ==
--- NOTE | ~2025-05-03 | MM_ITS ---
EXAMINATION: MM screening [facility] HISTORY: Screening mammogram TECHNIQUE: Craniocaudal and mediolateral oblique 3-D tomosynthesis images were obtained and synthetic 2-D images were generated. CAD analysis was submitted and interpreted. COMPARISON: 03/03/2024, 01/08/2023, 10/14/2021 BREAST PARENCHYMAL COMPOSITION:Not Dense. There are scattered areas of fibroglandular density. FINDINGS: No suspicious mass, calcification, or architectural distortion are identified in either xochilt ast to suggest malignancy. There has been no suspicious interval change. IMPRESSION: No mammographic evidence of malignancy. Recommend routine screening mammography in one year. BI-RADS Category 1: Negative Reviewed, dictated and finalized at location .
== END 2025-05-03 11:29 | disposition home or self-care (01) ==
LOC: MICIMG 11:29
PROVIDERS: PCP Family Medicine; Visit Provider Family Medicine
DX: Z12.31 Encounter for screening mammogram for malignant neoplasm of breast (principal)
CPT/HCPCS: 77063; 77067